=== PATIENT | female | born 1990 | race Caucasian/White ===

== ENCOUNTER 2020-11-18 20:41 | Emergency (ER) | payer OTHER ==
[~2020-11-18] VITALS: Ht 160 cm; Wt 67.1 kg
[~2020-11-18 20:41] MED LIST: ACET-10509 PO; FER300L PO; PRED5TAB8 PO; PREN-385 PO
[2020-11-18 21:17] VITALS: BP 138/79
--- NOTE | 2020-11-18 21:24 | NUR ---
patient ambulatory to lobby to wait for bed.
--- NOTE | 2020-11-18 21:29 | NUR ---
PT TAKEN TO BED 9
--- NOTE | 2020-11-18 21:35 | NUR ---
URINE SPECIMEN COLLECTED AND WALKED TO LAB.
--- NOTE | 2020-11-18 21:43 | NUR ---
SEE PATIENT ASSESSMENT FOR MORE INFORMATION.
[2020-11-18 21:46] LABS: APPEARANCE,URINE SL CLOUDY (CLEAR); BILIRUBIN,URINE NEGATIVE (NEGATIVE); BLOOD, URINE 1+ (NEGATIVE); COLOR,URINE YELLOW (YELLOW); LEUKOCYTE ESTERASE ,URINE 3+ (NEGATIVE); NITRITE, URINE NEGATIVE (NEGATIVE); PH,URINE 7.5 (5.0-9.0); UGLUCOSE NEGATIVE (NEGATIVE)
--- NOTE | 2020-11-18 21:48 | NUR ---
PATIENT REPORTS SHE HAD A FEVER 3 DAYS AGO AND REPORTS SHE HAD DIARRHEA 4 DAYS AGO, DENIES CURRENT FEVER OR DIARRHEA.
[2020-11-18 22:02] LABS: RBC,URINE 0-5 /HPF (0-5)
--- NOTE | 2020-11-18 22:24 | NUR ---
Dr. Gruber examining patient.
--- NOTE | 2020-11-18 22:30 | NUR ---
LAB AT BEDSIDE.
[2020-11-18] MEDS ORDERED: ONDA-24 SL (22:44)
[2020-11-18] MEDS ORDERED: ONDANSETRON 4 MG ODT PO ONE (22:45)
[2020-11-18] MEDS ORDERED: cefTRIAXone 1,000 MG in LIDOCAINE MPF 1% 2.1 ML IM ONE (22:55)
[2020-11-18] MEDS ORDERED: CEPH-588 PO (22:56)
[2020-11-18] MEDS ORDERED: cefTRIAXone 1,000 MG VIAL ONE (23:25)
[2020-11-18] MEDS ORDERED: LIDOCAINE MPF 1% 5 ML ONE (23:25)
[2020-11-18 23:46] VITALS: BP 129/61
--- NOTE | 2020-11-18 23:46 | NUR ---
Patient discharged with v/s stable. Written and verbal after care instructions given and explained. Patient alert, oriented and verbalized understanding of instructions. Ambulatory with steady gait. All questions addressed prior to discharge. ID band removed. Patient advised to follow up with PMD. Rx of KEFLEX, ZOFRAN given. Patient educated on indication of medication including possible reaction and side effects. Opportunity to ask questions provided and answered.
== END 2020-11-18 23:46 | disposition home or self-care (01) ==
LOC: MED 20:41
DX: R11.2 Nausea with vomiting, unspecified (principal); N39.0 Urinary tract infection, site not specified; Z79.899 Other long term (current) drug therapy
CPT/HCPCS: 36415; 81001; 81025; 82948; 84702; 87086; 96372; 99283; J0696; J2001; Q0162

== ENCOUNTER 2021-03-03 13:15 | Emergency (ER) | payer OTHER ==
[~2021-03-03] VITALS: Ht 162.6 cm; Wt 63.0 kg
[~2021-03-03 13:15] MED LIST changes: +CEPH-588 PO; +ONDA-24 SL
[2021-03-03 13:27] VITALS: BP 139/89
[2021-03-03] MEDS ORDERED: SODIUM CHLORIDE FLUSH 10 ML SYR IVF STA (13:31)
--- NOTE | 2021-03-03 13:31 | NUR ---
to lobby pending bed in main ED. urine cup provided.
[2021-03-03 13:55] LABS: BASOPHILS # (AUTO) 0.1 K/uL (0.00-0.22); BASOPHILS % (AUTO) 0.4 % (0.0-2.0); EOSINOPHILS % (AUTO) 0.3 % (0.0-4.0); HEMOGLOBIN 12.4 g/dL (12.0-16.0); LYMPHOCYTES # (AUTO) 2.6 K/uL (2.5-16.5); LYMPHOCYTES % (AUTO) 20.6 % (20.5-51.1); MEAN CORPUSCULAR HEMOGLOBIN 30 pg (27-31); MEAN CORPUSCULAR HGB CONC 34 g/dL (33-37); MONOCYTES # (AUTO) 0.6 K/uL (0.8-1.0); MONOCYTES % (AUTO) 4.8 % (1.7-9.3); NEUTROPHILS # (AUTO) 9.5 K/uL (1.8-7.7); NEUTROPHILS % (AUTO) 73.9 % (42.2-75.2); PLATELET COUNT (AUTO) 169 K/uL (140-450); RED BLOOD CELL COUNT(AUTO) 4.16 MIL/uL (4.20-5.40); RED CELL DISTRIBUTION WIDTH 12.8 % (11.6-13.7); WHITE BLOOD COUNT (AUTO) 12.8 K/uL (4.8-10.8)
[2021-03-03 14:12] LABS: ALBUMIN 3.4 g/dL (3.4-5.0); ANION GAP 13.4 (8-16); CREATININE 0.7 mg/dL (0.6-1.3); POTASSIUM 3.4 mmol/L (3.5-5.1); TOTAL BILIRUBIN 0.2 mg/dL (0.0-1.0)
[2021-03-03] MEDS ORDERED: NACL 0.9% 1,000 ML IV ONE ×2 (15:30→17:20)
[2021-03-03] MEDS ORDERED: ONDANSETRON 4 MG/2 ML VIAL IVP ONE (15:45)
--- NOTE | 2021-03-03 15:54 | NUR ---
30 FEMALE THAT IS 14.5 WEEKS GESTATION WITH ADBOMINAL PAIN AND HYPEREMISIS X3 DAYS. PT STATES SHE HAS BEEN DX WITH HYPEREMESIS GRAVIDARUM. CURRENTLY DENIES ANY VAGINAL BLEEDING PMH: - [facility]
--- NOTE | 2021-03-03 16:28 | NUR ---
DREW to CPT [facility].
[2021-03-03 16:32] LABS: APPEARANCE,URINE HAZY (CLEAR); BILIRUBIN,URINE NEGATIVE (NEGATIVE); BLOOD, URINE NEGATIVE (NEGATIVE); COLOR,URINE YELLOW (YELLOW); LEUKOCYTE ESTERASE ,URINE 2+ (NEGATIVE); NITRITE, URINE NEGATIVE (NEGATIVE); UGLUCOSE NEGATIVE (NEGATIVE)
[2021-03-03 16:59] LABS: RBC,URINE 0-5 /HPF (0-5)
--- NOTE | 2021-03-03 17:37 | NUR ---
PT RESTING IN BED ON PHONE. STATES PAIN HAS GOTTEN BETTER AND SHE DOES NOT FEEL ANY NAUSEA AT THIS MOMENT. PLACED PT ONTO BUS MATRON. VITAL SIGNS STABLE. WILL CONTINUE TO MONITOR
[2021-03-03] MEDS ORDERED: NITR100C7 PO (18:07)
[2021-03-03] MEDS ORDERED: ONDA-24 PO (18:07)
[2021-03-03 18:55] VITALS: BP 101/55
--- NOTE | 2021-03-03 18:56 | NUR ---
Patient discharged with v/s stable. Written and verbal after care instructions given and explained. Patient alert, oriented and verbalized understanding of instructions. Ambulatory with steady gait. All questions addressed prior to discharge. ID band removed. Patient advised to follow up with PMD. Rx of ZOFRAN AND MACROBID given. Patient educated on indication of medication including possible reaction and side effects. Opportunity to ask questions provided and answered.
== END 2021-03-03 18:56 | disposition home or self-care (01) ==
LOC: MED 13:15
DX: O21.0 Mild hyperemesis gravidarum (principal); O23.42 Unspecified infection of urinary tract in pregnancy, second trimester; Z3A.15 15 weeks gestation of pregnancy; Z79.2 Long term (current) use of antibiotics; Z79.899 Other long term (current) drug therapy
CPT/HCPCS: 36415; 76805; 80053; 81001; 81025; 83690; 85025; 87086; 96361; 96374; 99284; J2405; J7030